=== PATIENT | female | born 1965 | race Caucasian/White ===

== ENCOUNTER 2016-07-25 08:13 | Emergency (ER) | payer BC, OTHER ==
--- NOTE | 2016-07-25 10:10 | DIAGNOSTIC IMAGING REPORT ---
PROCEDURE: XR CHEST 1 VIEW INDICATION: CHEST PAIN TECHNIQUE: Single view chest. 09:05 hours COMPARISON: None FINDINGS: The cardiopulmonary contour and central vasculature are stable, within normal limits. The lungs are clear without focal consolidation, pleural effusion or pneumothorax. The osseous structures are intact. IMPRESSION: 1. No evidence of acute cardiopulmonary disease.
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
--- NOTE | 2016-07-25 10:22 | ED CLINICAL REPORT ---
Clinical Report - Physicians/Mid Levels [facility] [address] [place] [address] 07/25/2016 8:19 Patient: CEE ELISE Time Seen: 08:27. Arrived- By private vehicle. Historian- patient. HISTORY OF PRESENT ILLNESS Chief Complaint: PALPITATIONS and CHEST DISCOMFORT. It is described as a fast and pounding heart beat. She complains of weakness. Modifying factors. Not worsened by anything. Not relieved by anything. This started at 0330; [place] weak, heart beat felt fast, fatigued. Went to work [place] palpitations in throat, chest heaviness. Feels like can't get a deep breath. Onset during rest. The patient has had mild generalized chest tightness. Similar symptoms previously: None. Recent medical care: The patient was seen recently by a health care provider. ( 7 days ago sinus surgery). REVIEW OF SYSTEMS No cough, orthopnea, calf pain or depression. No anxiety. All systems otherwise negative, except as recorded above. PAST HISTORY [place] ANA [place] Ops: Lumbar laminectomy, rizotomy, lumbar decompression, sinus surgery, uterine ablation Illness: depression and anxiety. Medications: Methocarbamol Oral 750 mg, as needed. PROzac Oral 40 mg, daily. Atorvastatin Calcium Oral 20 mg, daily. Allergies: Sulfa Antibiotics. SOCIAL HISTORY Never smoker. No alcohol use or drug use. ADDITIONAL NOTES The nursing notes have been reviewed. PHYSICAL EXAM Vital Signs: 07/25/2016 08:27 Temp: 97.9 F. 07/25/2016 08:19 BP: 128/62. HR: 83. RR: 18. O2 saturation: 98%. Pain level now: 2/10. Appearance: Alert. Oriented X3. No acute distress. Eyes: Eyes normal inspection. ENT: Pharynx normal. Neck: No JVD. CVS: Normal heart rate and rhythm. Heart sounds normal. Respiratory: No respiratory distress. Breath sounds normal. Chest nontender. Skin: Skin warm and dry. Normal skin color. No rash. Extremities: No calf tenderness. No lower extremity edema. Neuro: Oriented X 3. LABS, X-RAYS, AND EKG EKG: No acute process. No acute ischemia. Normal ST and T waves. Laboratory Tests: CBC w Diff: (ANUJ: 07/25/2016 08:30) ( MsgRcvd 07/25/2016 09:12) Final results Test Result Flag Units (Reference) WHITE BLOOD COUNT 6.6 K/uL (4.5-11.5) RED BLOOD COUNT 4.19 M/uL (4.00-5.20) HEMOGLOBIN 13.3 gm/dL (12.0-16.0) HEMATOCRIT 38.6 % (36.0-46.0) MEAN CELL VOLUME 92 fL (80-100) MEAN CORPUSCULAR HGB 32 pg (26-34) MEAN CORPUSCULAR HGB CONC 35 g/dL (31-37) RED CELL DISTRIBUTION WIDTH 13.2 % (11.6-14.8) PLATELET COUNT 255 K/uL (150-400) NEUTROPHIL % 61.9 % (50-75) LYMPH % 24.0 L % (25-40) MONO % 9.0 % (3-14) EOSINOPHIL % 4.5 H % (0-4) BASOPHIL % 0.6 % (0-2) CHEM 13 PANEL: (ANUJ: 07/25/2016 08:30) ( MsgRcvd 07/25/2016 09:21) Final results Test Result Flag Units (Reference) GLUCOSE 98 mg/dL (70-110) BUN 15 mg/dL (7-18) CREATININE 0.8 mg/dL (0.6-1.3) Estimated GFR >60 mL/min Estimated GFR- >60 mL/min Note: Persistent reduction over 3 months in eGFR<60 mL/min/1.73 m2 defines CKD. Patients with eGFR values>=60 mL/min/1.73 m2 may also have CKD if evidence ofpersistent proteinuria. Additional information may be foundat www.kidney.org. SODIUM 140 mmol/L (136-145) POTASSIUM 4.2 mmol/L (3.5-5.1) CHLORIDE 108 H mmol/L (98-107) CARBON DIOXIDE 23 mmol/L (21-32) CALCIUM 8.5 mg/dL (8.5-10.1) TOTAL PROTEIN 6.5 g/dL (6.4-8.2) ALBUMIN 3.5 g/dL (3.3-5.0) BILIRUBIN, TOTAL 0.3 mg/dL (0.0-1.0) ALKALINE PHOSPHATASE 112 U/L (46-116) AST (SGOT) 19 U/L (15-37) ALT (SGPT) 42 U/L (12-78) CPK 72 U/L (24-260) MAGNESIUM 2.0 mg/dL (1.8-2.4) TROPONIN I <0.05 L ng/mL (0.00-1.5) TROPONIN REFERENCE RANGE:<0.1 NEGATIVE0.1-1.5 INDETERMINANT>1.5 POSITIVE . PROGRESS AND PROCEDURES Course of Care: 07/25/2016 09:30 BP: 100/68. HR: 80. RR: 22. O2 saturation: 100%. Vital Signs: have been reviewed. Blood pressure normal. Heart rate normal. Tachypneic. Temperature normal. Oxygen saturation normal. Disposition: Discharged home in good and improved condition. Condition: good. CLINICAL IMPRESSION Palpitations INSTRUCTIONS Do not work today. Avoid stimulants (such as cigarettes, coffee, cold medicines, sinus medicines, street drugs). Drink plenty of fluids. Your Current Medications: CONTINUE TAKING THE FOLLOWING MEDICATIONS: Atorvastatin Calcium Oral : 20 mg daily. Methocarbamol Oral : 750 mg, prn. PROzac Oral : 40 mg daily. Follow-up: Screening today revealed the patient's blood pressure to be in the normal range. Follow-up with: Rivera Waller MD, Cardiology, , [facility], [address] [place] [address], [address], [place] [address] Follow up in about four days. Call for an appointment. (Electronically signed by Andreas Little Dr. 07/25/2016 10:25)
--- NOTE | 2016-07-25 10:22 | ED CLINICAL REPORT ---
Clinical Report - Physicians/Mid Levels [facility] [address] [place] [address] 07/25/2016 8:19 Patient: CEE ELISE Time Seen: 08:27. Arrived- By private vehicle. Historian- patient. HISTORY OF PRESENT ILLNESS Chief Complaint: PALPITATIONS and CHEST DISCOMFORT. It is described as a fast and pounding heart beat. She complains of weakness. Modifying factors. Not worsened by anything. Not relieved by anything. This started at 0330; [place] weak, heart beat felt fast, fatigued. Went to work [place] palpitations in throat, chest heaviness. Feels like can't get a deep breath. Onset during rest. The patient has had mild generalized chest tightness. Similar symptoms previously: None. Recent medical care: The patient was seen recently by a health care provider. ( 7 days ago sinus surgery). REVIEW OF SYSTEMS No cough, orthopnea, calf pain or depression. No anxiety. All systems otherwise negative, except as recorded above. PAST HISTORY [place] A[place] Ops: Lumbar laminectomy, rizotomy, lumbar decompression, sinus surgery, uterine ablation Illness: depression and anxiety. Medications: Methocarbamol Oral 750 mg, as needed. PROzac Oral 40 mg, daily. Atorvastatin Calcium Oral 20 mg, daily. Allergies: Sulfa Antibiotics. SOCIAL HISTORY Never smoker. No alcohol use or drug use. ADDITIONAL NOTES The nursing notes have been reviewed. PHYSICAL EXAM Vital Signs: 07/25/2016 08:27 Temp: 97.9 F. 07/25/2016 08:19 BP: 128/62. HR: 83. RR: 18. O2 saturation: 98%. Pain level now: 2/10. Appearance: Alert. Oriented X3. No acute distress. Eyes: Eyes normal inspection. ENT: Pharynx normal. Neck: No JVD. CVS: Normal heart rate and rhythm. Heart sounds normal. Respiratory: No respiratory distress. Breath sounds normal. Chest nontender. Skin: Skin warm and dry. Normal skin color. No rash. Extremities: No calf tenderness. No lower extremity edema. Neuro: Oriented X 3. LABS, X-RAYS, AND EKG EKG: No acute process. No acute ischemia. Normal ST and T waves. Laboratory Tests: CBC w Diff: (ANUJ: 07/25/2016 08:30) ( MsgRcvd 07/25/2016 09:12) Final results Test Result Flag Units (Reference) WHITE BLOOD COUNT 6.6 K/uL (4.5-11.5) RED BLOOD COUNT 4.19 M/uL (4.00-5.20) HEMOGLOBIN 13.3 gm/dL (12.0-16.0) HEMATOCRIT 38.6 % (36.0-46.0) MEAN CELL VOLUME 92 fL (80-100) MEAN CORPUSCULAR HGB 32 pg (26-34) MEAN CORPUSCULAR HGB CONC 35 g/dL (31-37) RED CELL DISTRIBUTION WIDTH 13.2 % (11.6-14.8) PLATELET COUNT 255 K/uL (150-400) NEUTROPHIL % 61.9 % (50-75) LYMPH % 24.0 L % (25-40) MONO % 9.0 % (3-14) EOSINOPHIL % 4.5 H % (0-4) BASOPHIL % 0.6 % (0-2) CHEM 13 PANEL: (ANUJ: 07/25/2016 08:30) ( MsgRcvd 07/25/2016 09:21) Final results Test Result Flag Units (Reference) GLUCOSE 98 mg/dL (70-110) BUN 15 mg/dL (7-18) CREATININE 0.8 mg/dL (0.6-1.3) Estimated GFR >60 mL/min Estimated GFR- >60 mL/min Note: Persistent reduction over 3 months in eGFR<60 mL/min/1.73 m2 defines CKD. Patients with eGFR values>=60 mL/min/1.73 m2 may also have CKD if evidence ofpersistent proteinuria. Additional information may be foundat www.kidney.org. SODIUM 140 mmol/L (136-145) POTASSIUM 4.2 mmol/L (3.5-5.1) CHLORIDE 108 H mmol/L (98-107) CARBON DIOXIDE 23 mmol/L (21-32) CALCIUM 8.5 mg/dL (8.5-10.1) TOTAL PROTEIN 6.5 g/dL (6.4-8.2) ALBUMIN 3.5 g/dL (3.3-5.0) BILIRUBIN, TOTAL 0.3 mg/dL (0.0-1.0) ALKALINE PHOSPHATASE 112 U/L (46-116) AST (SGOT) 19 U/L (15-37) ALT (SGPT) 42 U/L (12-78) CPK 72 U/L (24-260) MAGNESIUM 2.0 mg/dL (1.8-2.4) TROPONIN I <0.05 L ng/mL (0.00-1.5) TROPONIN REFERENCE RANGE:<0.1 NEGATIVE0.1-1.5 INDETERMINANT>1.5 POSITIVE . PROGRESS AND PROCEDURES Course of Care: 07/25/2016 09:30 BP: 100/68. HR: 80. RR: 22. O2 saturation: 100%. Vital Signs: have been reviewed. Blood pressure normal. Heart rate normal. Tachypneic. Temperature normal. Oxygen saturation normal. Disposition: Discharged home in good and improved condition. Condition: good. CLINICAL IMPRESSION Palpitations INSTRUCTIONS Do not work today. Avoid stimulants (such as cigarettes, coffee, cold medicines, sinus medicines, street drugs). Drink plenty of fluids. Your Current Medications: CONTINUE TAKING THE FOLLOWING MEDICATIONS: Atorvastatin Calcium Oral : 20 mg daily. Methocarbamol Oral : 750 mg, prn. PROzac Oral : 40 mg daily. Follow-up: Screening today revealed the patient's blood pressure to be in the normal range. Follow-up with: Rivera Waller MD, Cardiology, , [facility], [address] [place] [address], [address], [place] [address] Follow up in about four days. Call for an appointment. (Electronically signed by Andreas Little Dr. 07/25/2016 10:25)
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
--- NOTE | 2016-07-25 10:22 | ED ORDER SUMMARY ---
..... Patient: CEE ELISE OrderSheet [facility] VisitID: [id number] [place] [address] 50y, F Registration Date/Time: 07/25/2016 ORDER SHEET Weight: 79.3 kg (stated) Allergies: Sulfa Antibiotics GENERAL ORDERS: Chest 1V Urgent (08:52 07/25/2016 Mattie TONY) (Ack 8:58 TBergley) (10:10 LSullivan R.N.) Field Representative/Health Education (Continuous) (08:07/25/2016 Mattie TONY) (8:54 Lora R.N.) Cardiac Panel Stat (08:07/25/2016 Mattie TONY) (8:54 Lora R.N.) Oxygen (2 L/min) (NC) (08:07/25/2016 Mattie TONY) (Ack 8:58 TBergley) (9:20 LSullivan R.N.) Pulse oximeter (08:07/25/2016 Mattie TONY) (8:54 Lora R.N.) EKG - ER Stat (08:07/25/2016 Mattie TONY) (8:54 Lora R.N.) MEDICATION ORDERS: Aspirin PO 325 mg (NOW) (08:52 07/25/2016 Mattie TONY) (Ack 8:54 Lora R.N.) (8:58 Lora R.N.) IV FLUIDS: IV Saline Lock (08:45 07/25/2016 LSashlynivan R.N. per protocol) (8:46 LSashlynivan R.N.) IV Saline Lock (08:53 07/25/2016 Mattie TONY) (Cancelled: Duplicate Order9:49 LSullivan R.N.) ORDER SHEET NOTES: [Electronically signed by Andreas Little Dr. (10:25 07/25/2016)] [Electronically signed by Brigitte Rodrigues R.N. (10:52 07/25/2016)] [Electronically locked/signed by Brigitte Rodrigues R.N. (10:52 07/25/2016)]
--- NOTE | 2016-07-25 10:22 | ED ORDER SUMMARY ---
..... Patient: CEE ELISE OrderSheet [facility] VisitID: [id number] [place] [address] 50y, F Registration Date/Time: 07/25/2016 ORDER SHEET Weight: 79.3 kg (stated) Allergies: Sulfa Antibiotics GENERAL ORDERS: Chest 1V Urgent (08:52 07/25/2016 Mattie TONY) (Ack 8:58 TBergley) (10:10 LSullivan R.N.) Supply Chain Assistant (Continuous) (08:07/25/2016 Mattie TONY) (8:54 Lora R.N.) Cardiac Panel Stat (08:07/25/2016 Mattie TONY) (8:54 Lora R.N.) Oxygen (2 L/min) (NC) (08:07/25/2016 Mattie TONY) (Ack 8:58 TBergley) (9:20 LSullivan R.N.) Pulse oximeter (08:07/25/2016 Mattie TONY) (8:54 Lora R.N.) EKG - ER Stat (08:07/25/2016 Mattie TONY) (8:54 Lora R.N.) MEDICATION ORDERS: Aspirin PO 325 mg (NOW) (08:52 07/25/2016 Mattie TONY) (Ack 8:54 Lora R.N.) (8:58 Lora R.N.) IV FLUIDS: IV Saline Lock (08:45 07/25/2016 LSashlynivan R.N. per protocol) (8:46 LSashlynivan R.N.) IV Saline Lock (08:53 07/25/2016 Mattie TONY) (Cancelled: Duplicate Order9:49 LSullivan R.N.) ORDER SHEET NOTES: [Electronically signed by Andreas Little Dr. (10:25 07/25/2016)] [Electronically signed by Brigitte Rodrigues R.N. (10:52 07/25/2016)] [Electronically locked/signed by Brigitte Rodrigues R.N. (10:52 07/25/2016)]
--- NOTE | 2016-07-25 10:53 | ED MED RECONCILIATION SUMMARY ---
Patient: CEE ELISE Medication Reconciliation Report Located Within [facility] VisitID: [id number] [address] [place] [address] 50y, F Registration Date/Time: 07/25/2016 Weight: 79.3 kg Height/Length: 67 in. BMI: 27.4 ALLERGIES: Sulfa Antibiotics The patient's Home Medications are listed below: CONTINUE TAKING THE FOLLOWING MEDICATIONS: Atorvastatin Calcium Oral 20 mg, daily Methocarbamol Oral 750 mg PROzac Oral 40 mg, daily The source(s) of the original Home Medication information: Not obtained. The following Medications were given to the patient in the Emergency Department: Aspirin [PO] PO 325 mg, administered: 07/25/2016 8:58:00 AM The following Medications were prescribed to the patient: None.
--- NOTE | 2016-07-25 10:53 | ED MED RECONCILIATION SUMMARY ---
Patient: CEE ELISE Medication Reconciliation Report [facility] VisitID: [id number] [address] [place] [address] 50y, F Registration Date/Time: 07/25/2016 Weight: 79.3 kg Height/Length: 67 in. BMI: 27.4 ALLERGIES: Sulfa Antibiotics The patient's Home Medications are listed below: CONTINUE TAKING THE FOLLOWING MEDICATIONS: Atorvastatin Calcium Oral 20 mg, daily Methocarbamol Oral 750 mg PROzac Oral 40 mg, daily The source(s) of the original Home Medication information: Not obtained. The following Medications were given to the patient in the Emergency Department: Aspirin [PO] PO 325 mg, administered: 07/25/2016 8:58:00 AM The following Medications were prescribed to the patient: None.
--- NOTE | 2016-07-25 10:53 | ED DISCHARGE INSTRUCTIONS ---
Patient: CEE ELISE General Instructions Located Within [facility] VisitID: [id number] [place] [address] 50y, F Registration Date/Time: 07/25/2016 Palpitations INSTRUCTIONS Do not work today. Avoid stimulants (such as cigarettes, coffee, cold medicines, sinus medicines, street drugs). Drink plenty of fluids. Your Current Medications: CONTINUE TAKING THE FOLLOWING MEDICATIONS: Atorvastatin Calcium Oral : 20 mg daily. Methocarbamol Oral : 750 mg, prn. PROzac Oral : 40 mg daily. Follow-up: Screening today revealed the patient's blood pressure to be in the normal range. Follow-up with: Rivera Waller MD, Cardiology, , [address], [address], [place] [address] Follow up in about four days. Call for an appointment. ADDITIONAL INFORMATION Heart Palpitations Palpitations refers to the feeling that your heart is beating hard, fast or irregular. Some people describe it as "pounding" or "skipped beats". Palpitations may occur in persons with heart disease, but can also occur in healthy persons. Heart-Related Causes: Arrhythmia (a change from the heart's normal rhythm) Disease of the heart valves Wus-Tqbjc-Vwjqozx Causes: Certain medicines (such as asthma inhalers and decongestants) Some herbal supplements, energy drinks and pills, and weight loss pills Illegal stimulant drugs (such as cocaine, crank, methamphetamine, PCP) Caffeine, alcohol and tobacco Medical conditions such as thyroid disease, anemia, anxiety and panic disorder Sometimes the cause cannot be found. Home Care: Avoid excess caffeine, alcohol, tobacco and any stimulant drugs. Tell your doctor about any prescription or vlui-pow-ccqtcdi or herbal medicines you take. Follow Up with your doctor or as advised by our staff. Get Prompt Medical Attention if any of the following occur together with palpitations: Weakness, dizziness, light-headed or fainting Chest pain or shortness of breath Rapid heart rate (over 120 beats per minute, at rest) Palpitations that lasts over 20 minutes Weakness of an arm or leg or one side of the face Difficulty with speech or vision You have been given the following additional information: Palpitations Do not work today. (Electronically signed by Andreas Little Dr. 07/25/2016 10:25)
--- NOTE | 2016-07-25 10:53 | ED MAR SUMMARY ---
..... Medication Administration Record [facility] [address] [place] [address] Patient: CEE ELISE Visit ID: [id number] 50y, F Weight: 79.3 kg Height/Length: 67 in BMI: 27.4 ALLERGIES: Sulfa Antibiotics Given 08:58 07/25/2016 Tara Carballo R.N. Medication Administered: ASPIRIN [PO], Dose: 325 mg Tablets PO. Medication Ordered: Aspirin PO 325 mg (NOW).
--- NOTE | 2016-07-25 10:53 | ED DISCHARGE INSTRUCTIONS ---
Patient: CEE ELISE General Instructions [facility] VisitID: [id number] [place] [address] 50y, F Registration Date/Time: 07/25/2016 Palpitations INSTRUCTIONS Do not work today. Avoid stimulants (such as cigarettes, coffee, cold medicines, sinus medicines, street drugs). Drink plenty of fluids. Your Current Medications: CONTINUE TAKING THE FOLLOWING MEDICATIONS: Atorvastatin Calcium Oral : 20 mg daily. Methocarbamol Oral : 750 mg, prn. PROzac Oral : 40 mg daily. Follow-up: Screening today revealed the patient's blood pressure to be in the normal range. Follow-up with: Rivera Waller MD, Cardiology, , [address], [address], [place] [address] Follow up in about four days. Call for an appointment. ADDITIONAL INFORMATION Heart Palpitations Palpitations refers to the feeling that your heart is beating hard, fast or irregular. Some people describe it as "pounding" or "skipped beats". Palpitations may occur in persons with heart disease, but can also occur in healthy persons. Heart-Related Causes: Arrhythmia (a change from the heart's normal rhythm) Disease of the heart valves Mvt-Yrvio-Oqaluxw Causes: Certain medicines (such as asthma inhalers and decongestants) Some herbal supplements, energy drinks and pills, and weight loss pills Illegal stimulant drugs (such as cocaine, crank, methamphetamine, PCP) Caffeine, alcohol and tobacco Medical conditions such as thyroid disease, anemia, anxiety and panic disorder Sometimes the cause cannot be found. Home Care: Avoid excess caffeine, alcohol, tobacco and any stimulant drugs. Tell your doctor about any prescription or zauw-njb-ypvdgnl or herbal medicines you take. Follow Up with your doctor or as advised by our staff. Get Prompt Medical Attention if any of the following occur together with palpitations: Weakness, dizziness, light-headed or fainting Chest pain or shortness of breath Rapid heart rate (over 120 beats per minute, at rest) Palpitations that lasts over 20 minutes Weakness of an arm or leg or one side of the face Difficulty with speech or vision You have been given the following additional information: Palpitations Do not work today. (Electronically signed by Andreas Little Dr. 07/25/2016 10:25)
--- NOTE | 2016-07-25 10:53 | ED MAR SUMMARY ---
..... Medication Administration Record [address] [place] [address] Patient: CEE ELISE Visit ID: [id number] 50y, F Weight: 79.3 kg Height/Length: 67 in BMI: 27.4 ALLERGIES: Sulfa Antibiotics Given 08:58 07/25/2016 Tara Carballo R.N. Medication Administered: ASPIRIN [PO], Dose: 325 mg Tablets PO. Medication Ordered: Aspirin PO 325 mg (NOW).
== END 2016-07-25 10:40 | disposition home or self-care (01) ==
LOC: ED SRH 08:13
DX: R00.2 Palpitations (principal); R07.89 Other chest pain; Z79.899 Other long term (current) drug therapy; Z88.2 Allergy status to sulfonamides
CPT/HCPCS: 90100; 90616; 92610; 92720; 95059